=== PATIENT | male | born 1985 | race Caucasian/White ===

== ENCOUNTER 2021-05-05 10:02 | Emergency (ER) | payer MEDICAID, SELFPAY ==
--- NOTE | ~2021-05-05 | CT_ITS ---
EXAMINATION: CT ABDOMEN AND PELVIS WITH CONTRAST CLINICAL INFORMATION: Chills, nausea and vomiting and right lower quadrant pain for 3 days COMPARISON: Previous CT of the abdomen and pelvis July 2018 TECHNIQUE: Multidetector volumetric images were obtained from the superior aspect of the liver through the pubic symphysis following administration 85 mL of Omnipaque 350 intravenous contrast. Sagittal and coronal reformatted images were obtained on the technologist's workstation. Oral contrast: Yes This CT examination was performed using dose optimization techniques as appropriate, variously including the following: *Automated exposure control *Adjustment of mA and/or kV according to patient size (this includes techniques or standardized protocols for targeted exams where dose is matched to indication/reason for exam; i.e. extremities or head) *Use of iterative reconstruction technique DLP: 513 mGy-cm FINDINGS: LUNG BASES: The visualized lung bases are unremarkable. LIVER, GALLBLADDER, AND BILIARY TREE: The liver is normal in size, shape, and attenuation. No focal hepatic lesion or biliary ductal dilatation is present. The gallbladder is unremarkable with no evidence of radiopaque gallstones, gallbladder wall thickening, or obvious pericholecystic inflammatory changes. PANCREAS: There is question of small amount of fluid adjacent to the head of the pancreas versus wall edema and thickening of the stomach axial image 28 series 2. The pancreas is otherwise normal. The main pancreatic duct does not appear dilated. SPLEEN: Unremarkable. ADRENAL GLANDS: Unremarkable. KIDNEYS AND URETERS: The kidneys are normal in size, shape, and attenuation. No hydronephrosis, hydroureter, or calculi seen. No perinephric stranding. BLADDER: Unremarkable. GASTROINTESTINAL TRACT: There is an isolated dilated fluid-filled loop of small bowel in the left mid abdomen. This measures up to 3.5 cm in diameter. There is question of mild wall thickening of adjacent loops of proximal small bowel. The small and large bowel is otherwise unremarkable. There is stool throughout the colon. There is question of mild wall thickening of the distal stomach versus a small amount of fluid adjacent to the distal stomach and head of the pancreas for example axial image 27 series 2. No other evidence of ascites. No free air. The appendix is unremarkable. ABDOMINAL WALL: No significant hernia is appreciated. LYMPH NODES: Normal. VASCULAR: Unremarkable. PELVIC VISCERA: Unremarkable. OSSEOUS STRUCTURES: Unremarkable. CT/CT abdomen pelvis w con IMPRESSION: Normal-appearing appendix. Question wall thickening and edema versus a small amount of fluid adjacent to the distal stomach and pancreatic head. Dilated fluid-filled loop of proximal small bowel in the left mid abdomen and question adjacent mild proximal bowel wall thickening. Possible gastritis and enteritis and small bowel ileus should be considered. It is difficult to exclude a partial small bowel obstruction and imaging follow-up should be considered. Correlation with amylase to exclude possible pancreatitis is also recommended.
[2021-05-05 11:11] VITALS: BP 153/98; BP 161/92; PULSE 57; PULSE 61; RESP 18; TEMP 36.8; O2SAT 100; O2SAT 99; BMI 27.3
[2021-05-05 11:47] LABS: MANUAL DIFF FLAG NO
[2021-05-05] MEDS: 0.9 % Sodium Chloride 1,000 ML 999 ML IVCONT (11:47)
[2021-05-05 11:55] LABS: INTERNATIONAL NORM RATIO 1.1 (0.9-1.1); Prothrombin Time 12.8 SEC (9.9-13.0)
[2021-05-05 11:57] LABS: Basophils Absolute Auto 0.1 X10*3/uL (0.0-0.2); Basophils Percent Auto 0.3 % (0-2); Hematocrit 45.8 % (42.0-52.0); Hemoglobin 14.7 g/dl (14.0-18.0); Imm Gran Abs Auto 0.07 X10*3/uL (0.00-0.03); Imm Gran Pct Auto 0.5 % (0.0-0.4); Lymphocytes Absolute Auto 1.6 X10*3/uL (1.2-4.9); Lymphocytes Percent Auto 11.1 % (20-40); Mean Corpuscular HGB Conc 32.1 g/dl (31.0-36.0); Mean Corpuscular Hemoglobin 27.6 pg (27.0-33.0); Mean Corpuscular Volume 86.1 fL (80.0-98.0); Mean Platelet Volume 10.2 fL (9.4-12.4); Monocytes Absolute Auto 1.1 X10*3/uL (0.1-1.2); Monocytes Percent Auto 7.7 % (2-11); Neutrophils Absolute Auto 11.8 x10*3/uL (2.0-8.3); Neutrophils Percent Auto 80.4 % (45-73); Platelet Count 265 X10*3/uL (160-400); Red Blood Count 5.32 X10*6/uL (4.60-5.80); White Blood Count 14.7 X10*3/uL (4.8-10.8)
[2021-05-05 12:02] LABS: COVID-19 Test Negative (Negative); IDNOW Serial# 16C4AD1C
[2021-05-05 12:04] LABS: Alanine Aminotransferase 30 U/L (0-40); Albumin Level 4.6 g/dL (3.5-5.0); Alkaline Phosphatase 65 U/L (39-117); Anion Gap 14 (12-20); Aspartate Amino Transferase 19 U/L (5-37); Bilirubin Total 1.2 mg/dL (0.0-1.0); Blood Urea Nitrogen 12 mg/dL (9-16); Carbon Dioxide 26 mmol/L (22-29); Chloride 100 mmol/L (96-108); Creatinine Clr Calc Pharmacy 98.2; Estimated Glomerular Filt Rate > 60; Glucose Random 111 mg/dL (60-115); Magnesium 2.5 mg/dL (1.6-2.6); Potassium 4.2 mmol/L (3.3-5.1); Sodium 136 mmol/L (135-145); Total Protein 7.9 g/dL (6.5-8.0)
[2021-05-05] MEDS: iohexoL 350 MG/ML 100 ML INFUS..BTL 85 ML IV (12:16)
[2021-05-05] MEDS: ondansetron HCL 4 MG/2 ML VIAL IVPUSH (12:23)
[2021-05-05] MEDS: Ketorolac Tromethamine 30 MG/ML VIAL IVPUSH (13:17)
[2021-05-05 13:19] LABS: Amylase 61 U/L (28-100)
[2021-05-05 13:24] LABS: C Reactive Protein 0.03 mg/dL (< or = 0.50); Lipase 14 U/L (8-78)
[2021-05-05 13:24] LABS: Appearance Urine CLEAR; Color Urine YELLOW; Glucose Urine UA NEG (NEG); Leukocyte Esterase Urine NEG (NEG); Nitrite Urine NEG (NEG); Specific Gravity - Urine <= 1.005 (1.005-1.025); Urine Blood NEG (NEG); Urine Ketones NEG (NEG); Urine Protein NEG (NEG-TRACE)
[2021-05-05 13:29] VITALS: RESP 17
[2021-05-05 13:56] LABS: Erythrocyte Sedimentation Rate 3 MM/HR (0-15)
--- NOTE | 2021-05-05 13:58 | PC.NURSE ---
HPD ALERTED THAT PATIENT LEFT [facility] WITHOUT BEING DISCHARGED AND LEFT WITH A PERIPHERAL IV.
--- NOTE | 2021-05-05 14:00 | ED.ABDPAIN ---
HPI - Abdominal Pain General Chief Complaint: Abdominal Pain Stated Complaint: RUQ/RLQ PAIN PER EMS FROM [facility] Time Seen by Provider: 05/05/21 10:46 Source: patient Mode of arrival: ambulatory Limitations: no limitations History of Present Illness HPI narrative: 35-year-old male who is presenting from [facility] who recently started methadone 30 mg 3 days ago presenting to the ED with complaints of nausea/vomiting diffuse abdominal pain and constipation for the past 3 days. Reports that he had a small bowel movement yesterday although no symptomatic relief because the abdominal pain continues. He was given laxatives with good affect still with abdominal pain this is why he came here for further evaluation treatment. He denies any fevers, chills, dizziness, headache, neck pain/stiffness, trouble swallowing breathing, sore throat, loss of taste or smell, ear pain, chest pain or shortness of breath, dyspnea on exertion, orthopnea, black or bloody emesis, radiation of the abdominal pain, back pain, dysuria, hematuria, abnormal penile discharge, black or bloody stools, recent travel or sick contacts or any other symptoms complaints or concerns at this time. MD elicited complaint: abdominal pain Onset (ago): day(s) (3) Pain Consistency: constant Location: diffuse Severity: mild Quality: cramping Radiation: none Migration to: no migration Exacerbating factors: nothing Relieving factors: nothing Associated symptoms: nausea and vomiting Related Data Allergies Allergy/AdvReac Type Severity Reaction Status Date / Time No Known Allergies Allergy Verified 05/05/21 11:10 Review of Systems Review of Systems Constitutional : No Weight loss, No Fever, No Chills, No Night Sweats, No Fatigue, No Malaise ENT/Mouth : No Hearing loss, No Ear Pain, No Nasal Congestion, No Sinus Pain, No Hoarseness, No sore throat, No Rhinorrhea, No Swallowing Difficulty Eyes: No Eye Pain, No Swelling, No Redness, No Foreign Body, No Discharge, No Vision Changes Cardiovascular : No Chest Pain, No SOB, No Dyspnea on Exertion, No Orthopnea, No Edema, No Palpitations Respiratory : No Cough, No Sputum, No Wheezing, No Smoke Exposure, No Dyspnea Gastrointestinal : + Nausea, + Vomiting, No Diarrhea, + Constipation, + abdominal Pain, No Hematochezia, No Melena Genitourinary : no irregular bleeding, No Dysuria, No Urinary Frequency, No Hematuria, No Urinary Incontinence, No Urgency, No Flank Pain, No Urinary Flow Changes, No Hesitancy Musculoskeletal : No joint pain, No Myalgias, No Joint Swelling Skin : No Skin Lesions, No rash Neuro : No Weakness, No Numbness, No Paresthesias, No Loss of Consciousness, No Dizziness, No Headache Psych : No Anxiety/Panic, No Depression, No SI/HI/AH/VH, No Social Issues, Heme/Lymph: No Bruising, No Bleeding,No Lymphadenopathy Endocrine : No Polyuria, No Polydipsia, No Temperature Intolerance Yes all other systems are reviewed and are negative [facility] Past Medical History Attestation statement: The following information was validated with the patient. Social History Social History Advance Directives: No Advance Directives Information Provided: No Physical Exam ED Vital Signs: Vital Signs - 24 hr 05/05/21 11:11 05/05/21 13:29 Temperature 98.3 F Pulse Rate 57 Respiratory Rate 18 17 Blood Pressure 161/92 H Pulse Oximetry 100 BMI result Body Mass Index 27.3 vital signs have been reviewed as normal and appeared to be correct. Blood pressure 161/92. Heart rate normal. Respiration rate normal. Temperature normal. Oxygen saturation normal. Appearance: Alert. Oriented X3. No acute distress. Head: Normal external exam. Normocephalic. Atraumatic. Eyes: PERRLA. EOMI. Conjunctiva and sclera normal. Eyelids normal. ENT: Pharynx normal. Uvula midline. Moist mucous membranes. No lesions/ulcerations or masses noted on the tongue. Normal voice. No trismus noted. No drooling noted. No muffled voice noted. Neck: Normal inspection. Neck supple. FROM. No adenopathy. Thyroid Normal. No tracheal deviation noted. No crepitus is noted. No meningeal signs. No neck mass noted. No signs of trauma noted. CVS: Normal heart rate and rhythm. Heart sound normal. Pulses normal throughout. No murmurs/rales/gallops. Respiratory: No respiratory distress. Painless inspiration. Breath sounds normal. No wheezes/rales/rhonchi noted. Chest nontender. No crepitus is noted. No signs of trauma noted. No accessory muscle usage noted or decreased air movement noted. No signs of trauma. Abdomen: Soft and mild tenderness diffusely. Bowel sounds normal in all 4 quadrants. No distention noted. No organomegaly noted. No visible injury noted. Back: No CVA tenderness. Full range of motion noted. Nontender. No signs of trauma. Patient neuro intact bilaterally and distally on all 4 extremities. Patient's reflexes intact bilaterally and distally on all 4 extremities. No rashes/lesion/induration/fluctuance or signs of infection noted. Skin: Skin warm and dry. Normal skin color. Normal skin turgor. No rashes/lesions/lacerations noted. Extremities: Extremities exhibit normal range of motion and nontender. Neuro: Oriented X 3. No motor deficit. No sensory deficit. Reflexes normal. Normal steady gait. No focal neuro deficits noted. CN's II-XII intact bilaterally? Vascular: + radial pulses/+ 2 distal pedal pulses/+2 dorsalis pedis b/l. Normal cap refill. No cyanosis noted to upper extremity nails and lower extremity toes nails. Course Course Course Narrative: 2pm 35-year-old male who is presenting from [facility] who recently started methadone 30 mg 3 days ago presenting to the ED with complaints of nausea/vomiting diffuse abdominal pain and constipation for the past 3 days. Reports that he had a small bowel movement yesterday although no symptomatic relief because the abdominal pain continues. He was given laxatives with good affect still with abdominal pain this is why he came here for further evaluation treatment. He denies any fevers, chills, dizziness, headache, neck pain/stiffness, trouble swallowing breathing, sore throat, loss of taste or smell, ear pain, chest pain or shortness of breath, dyspnea on exertion, orthopnea, black or bloody emesis, radiation of the abdominal pain, back pain, dysuria, hematuria, abnormal penile discharge, black or bloody stools, recent travel or sick contacts or any other symptoms complaints or concerns at this time. Labs obtained [place] [id number]. Total bilirubin 1.2. Otherwise all other labs are within normal limits. UA within normal limits no evidence of UTI. Patient negative for COVID. CT scan abdomen pelvis revealed nonspecific changes although I consulted with Dr. Nance who took a look at the CT scan himself and reported that he does not believe this is a small-bowel obstruction. And the patient's lipase and amylase is within normal limits therefore not consistent with pancreatitis. Dr. Nance reported that he just has some constipation. When I went back into the room to discuss the findings with the patient he had eloped with the IV in his hand therefore [facility] department was called to remove the IV. MDM - Abdominal Pain Medical Records Attestation: I reviewed the patient's medical records. Lab Data Attestation: I reviewed the patient's lab results. Result diagrams: 05/05/21 11:41 05/05/21 11:41 Labs: Lab Results 05/05/21 05/05/21 05/05/21 Range/Units 11:41 11:41 11:41 WBC 14.7 H (4.8-10.8) X10*3/uL RBC 5.32 (4.60-5.80) X10*6/uL Hgb 14.7 (14.0-18.0) g/dl Hct 45.8 (42.0-52.0) % MCV 86.1 (80.0-98.0) fL MCH 27.6 (27.0-33.0) pg MCHC 32.1 (31.0-36.0) g/dl RDW 14.0 (11.0-16.0) % Plt Count 265 (160-400) X10*3/uL MPV 10.2 (9.4-12.4) fL Immature Gran % (Auto) 0.5 H (0.0-0.4) % Neut % (Auto) 80.4 H (45-73) % Lymph % (Auto) 11.1 L (20-40) % Mcdonald % (Auto) 7.7 (2-11) % Eos % (Auto) 0.0 (0-4) % Baso % (Auto) 0.3 (0-2) % Lymph # (Auto) 1.6 (1.2-4.9) X10*3/uL Mcdonald # (Auto) 1.1 (0.1-1.2) X10*3/uL Eos # (Auto) 0.0 (0.0-0.4) X10*3/uL Baso # (Auto) 0.1 (0.0-0.2) X10*3/uL Abs Immat Gran (auto) 0.07 H (0.00-0.03) X10*3/uL Absolute Neuts (auto) 11.8 H (2.0-8.3) x10*3/uL Absolute Nucleated RBC 0.000 (0.0-0.012) X10*3/uL Nucleated RBC % (auto) 0.0 (0.0-0.2) /100WBC ESR (0-15) MM/HR PT 12.8 (9.9-13.0) SEC INR 1.1 (0.9-1.1) Sodium 136 (135-145) mmol/L Potassium 4.2 (3.3-5.1) mmol/L Chloride 100 (96-108) mmol/L Carbon Dioxide 26 (22-29) mmol/L Anion Gap 14 (12-20) BUN 12 (9-16) mg/dL Creatinine 1.05 (0.5-1.4) mg/dL Estim Creat Clear Calc 98.2 Estimated GFR > 60 Random Glucose 111 (60-115) mg/dL Calcium 10.0 (8.4-10.2) mg/dL Magnesium 2.5 (1.6-2.6) mg/dL Total Bilirubin 1.2 H (0.0-1.0) mg/dL AST 19 (5-37) U/L ALT 30 (0-40) U/L Alkaline Phosphatase 65 (39-117) U/L C-Reactive Protein 0.03 (< or = 0.50) mg/dL Total Protein 7.9 (6.5-8.0) g/dL Albumin 4.6 (3.5-5.0) g/dL Amylase 61 (28-100) U/L Lipase 14 (8-78) U/L Urine Color Urine Appearance Urine pH (5.0-8.0) Ur Specific [place] (1.005-1.025) Urine Protein (NEG-TRACE) MG/DL Urine Glucose (UA) (NEG) MG/DL Urine Ketones (NEG) MG/DL Urine Blood (NEG) Urine Nitrite (NEG) Ur Leukocyte Esterase (NEG) COVID-19 (JAMEL) (Negative) COVID-19 Clin Com 05/05/21 05/05/21 05/05/21 Range/Units 11:43 11:43 13:02 WBC (4.8-10.8) X10*3/uL RBC (4.60-5.80) X10*6/uL Hgb (14.0-18.0) g/dl Hct (42.0-52.0) % MCV (80.0-98.0) fL MCH (27.0-33.0) pg MCHC (31.0-36.0) g/dl RDW (11.0-16.0) % Plt Count (160-400) X10*3/uL MPV (9.4-12.4) fL Immature Gran % (Auto) (0.0-0.4) % Neut % (Auto) (45-73) % Lymph % (Auto) (20-40) % Mcdonald % (Auto) (2-11) % Eos % (Auto) (0-4) % Baso % (Auto) (0-2) % Lymph # (Auto) (1.2-4.9) X10*3/uL Mcdonald # (Auto) (0.1-1.2) X10*3/uL Eos # (Auto) (0.0-0.4) X10*3/uL Baso # (Auto) (0.0-0.2) X10*3/uL Abs Immat Gran (auto) (0.00-0.03) X10*3/uL Absolute Neuts (auto) (2.0-8.3) x10*3/uL Absolute Nucleated RBC (0.0-0.012) X10*3/uL Nucleated RBC % (auto) (0.0-0.2) /100WBC ESR 3 (0-15) MM/HR PT (9.9-13.0) SEC INR (0.9-1.1) Sodium (135-145) mmol/L Potassium (3.3-5.1) mmol/L Chloride (96-108) mmol/L Carbon Dioxide (22-29) mmol/L Anion Gap (12-20) BUN (9-16) mg/dL Creatinine (0.5-1.4) mg/dL Estim Creat Clear Calc Estimated GFR Random Glucose (60-115) mg/dL Calcium (8.4-10.2) mg/dL Magnesium (1.6-2.6) mg/dL Total Bilirubin (0.0-1.0) mg/dL AST (5-37) U/L ALT (0-40) U/L Alkaline Phosphatase (39-117) U/L C-Reactive Protein (< or = 0.50) mg/dL Total Protein (6.5-8.0) g/dL Albumin (3.5-5.0) g/dL Amylase (28-100) U/L Lipase (8-78) U/L Urine Color YELLOW Urine Appearance CLEAR Urine pH 8.0 (5.0-8.0) Ur Specific [place] <= 1.005 (1.005-1.025) Urine Protein NEG (NEG-TRACE) MG/DL Urine Glucose (UA) NEG (NEG) MG/DL Urine Ketones NEG (NEG) MG/DL Urine Blood NEG (NEG) Urine Nitrite NEG (NEG) Ur Leukocyte Esterase NEG (NEG) COVID-19 (JAMEL) Negative (Negative) COVID-19 Clin Com See Note Imaging Data CT scan abdomen pelvis with IV contrast: Attestation: I personally reviewed and interpreted this imaging study as follows: Radiologist's impression: FINDINGS: LUNG BASES: The visualized lung bases are unremarkable.? LIVER, GALLBLADDER, AND BILIARY TREE: The liver is normal in size, shape, and attenuation. No focal hepatic lesion or biliary ductal dilatation is present. The gallbladder is unremarkable with no evidence of radiopaque gallstones, gallbladder wall thickening, or obvious pericholecystic inflammatory changes.? PANCREAS: There is question of small amount of fluid adjacent to the head of the pancreas versus wall edema and thickening of the stomach axial image 28 series 2. The pancreas is otherwise normal. The main pancreatic duct does not appear dilated. SPLEEN: Unremarkable.? ADRENAL GLANDS: Unremarkable.? KIDNEYS AND URETERS: The kidneys are normal in size, shape, and attenuation. No hydronephrosis, hydroureter, or calculi seen. No perinephric stranding. ? BLADDER: Unremarkable.? GASTROINTESTINAL TRACT: There is an isolated dilated fluid-filled loop of small bowel in the left mid abdomen. This measures up to 3.5 cm in diameter. There is question of mild wall thickening of adjacent loops of proximal small bowel. The small and large bowel is otherwise unremarkable. There is stool throughout the colon. There is question of mild wall thickening of the distal stomach versus a small amount of fluid adjacent to the distal stomach and head of the pancreas for example axial image 27 series 2. No other evidence of ascites. No free air. The appendix is unremarkable.? ABDOMINAL WALL: No significant hernia is appreciated.? LYMPH NODES: Normal. VASCULAR: Unremarkable. PELVIC VISCERA: Unremarkable.? OSSEOUS STRUCTURES: Unremarkable.? CT/CT abdomen pelvis w con IMPRESSION: Normal-appearing appendix. Question wall thickening and edema versus a small amount of fluid adjacent to the distal stomach and pancreatic head.? Dilated fluid-filled loop of proximal small bowel in the left mid abdomen and question adjacent mild proximal bowel wall thickening. Possible gastritis and enteritis and small bowel ileus should be considered. It is difficult to exclude a partial small bowel obstruction and imaging follow-up should be considered. Correlation with amylase to exclude possible pancreatitis is also recommended. Discharge Plan Discharge Clinical Impression: Nausea & vomiting, Abdominal pain, Constipation Patient Disposition: Elopement
== END 2021-05-05 15:38 | disposition left against medical advice (07) ==
PROVIDERS: Physician Assistant Medical; Emergency Provider Emergency Medicine
DX: K59.00 Constipation, unspecified (principal); R10.11 Right upper quadrant pain; R11.2 Nausea with vomiting, unspecified; R10.31 Right lower quadrant pain; Z20.822 Contact with and (suspected) exposure to COVID-19; Z79.899 Other long term (current) drug therapy
CPT/HCPCS: 36415; 74177; 80053; 81003; 82150; 83690; 83735; 85025; 85610; 85652; 86140; 87635; 96361; 96374; 96375; 99284; J1885; J2405; Q9967

== ENCOUNTER 2022-09-23 07:30 | Emergency (ER) | payer MEDICAID, SELFPAY ==
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
--- NOTE | ~2022-09-23 | XR_ITS ---
EXAMINATION: XR FOOT, LEFT XR ANKLE, LEFT CLINICAL INFORMATION: Left foot and ankle pain. COMPARISON: 05/24/2018 TECHNIQUE: AP and oblique views of the left ankle were obtained. AP, lateral and oblique views of the left foot were obtained. FINDINGS: Alignment is anatomic. There is mild joint space narrowing involving the first MTP joint. Ankle mortise is maintained. The talar dome is intact. Posterior and plantar calcaneal spurs. Small ossific fragments are seen involving the base of the fifth toe middle phalanx. Of note the distal and middle phalanges of the fifth toe are fused. This could represent avulsion fractures. There is extension to the PIP joint. XR/XR foot LT min 3V IMPRESSION: Possible avulsion fractures involving the fifth toe middle phalanx with intra-articular extension. Advise clinical correlation.
[2022-09-23 07:37] VITALS: BP 151/89; BP 154/88; PULSE 59; PULSE 60; RESP 16; TEMP 36.6; O2SAT 100; O2SAT 98; BMI 29.2
[2022-09-23 07:42] VITALS: RESP 16
[2022-09-23] MEDS: 0.9 % Sodium Chloride 1,000 ML 999 ML IVCONT (07:53)
[2022-09-23] MEDS: Ketorolac Tromethamine 30 MG/ML VIAL IVPUSH (07:53)
[2022-09-23 07:54] LABS: MANUAL DIFF FLAG NO
[2022-09-23 07:55] LABS: Basophils Absolute Auto 0.1 X10*3/uL (0.0-0.2); Basophils Percent Auto 0.6 % (0-2); Eosinophils Absolute Auto 0.2 X10*3/uL (0.0-0.4); Eosinophils Percent Auto 1.9 % (0-4); Hematocrit 40.6 % (42.0-52.0); Hemoglobin 12.8 g/dl (14.0-18.0); Imm Gran Abs Auto 0.04 X10*3/uL (0.00-0.03); Imm Gran Pct Auto 0.4 % (0.0-0.4); Lymphocytes Percent Auto 18.6 % (20-40); Mean Corpuscular HGB Conc 31.5 g/dl (31.0-36.0); Mean Corpuscular Hemoglobin 27.5 pg (27.0-33.0); Mean Corpuscular Volume 87.1 fL (80.0-98.0); Mean Platelet Volume 10.5 fL (9.4-12.4); Monocytes Absolute Auto 0.8 X10*3/uL (0.1-1.2); Monocytes Percent Auto 7.7 % (2-11); Neutrophils Absolute Auto 7.5 x10*3/uL (2.0-8.3); Neutrophils Percent Auto 70.8 % (45-73); Platelet Count 244 X10*3/uL (160-400); Red Blood Count 4.66 X10*6/uL (4.60-5.80); Red Cell Distribution Width 13.5 % (11.0-16.0); White Blood Count 10.6 X10*3/uL (4.8-10.8)
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
[2022-09-23 08:13] LABS: Alanine Aminotransferase 15 U/L (0-40); Albumin Level 3.9 g/dL (3.5-5.0); Alkaline Phosphatase 68 U/L (39-117); Anion Gap 11 (12-20); Aspartate Amino Transferase 14 U/L (5-37); Bilirubin Total 0.4 mg/dL (0.0-1.0); Blood Urea Nitrogen 13 mg/dL (9-16); Calcium 9.7 mg/dL (8.4-10.2); Carbon Dioxide 25 mmol/L (22-29); Chloride 108 mmol/L (96-108); Creatinine Clr Calc Pharmacy 113.1; Estimated Glomerular Filt Rate > 60; Ethanol < 10 mg/dL; Glucose Random 102 mg/dL (60-115); Lipase 45 U/L (8-78); Potassium 4.2 mmol/L (3.3-5.1); Sodium 140 mmol/L (135-145)
[2022-09-23] MEDS: Acetaminophen 325 MG TABLET 975 MG PO (09:01)
[2022-09-23 09:19] LABS: Amphetamine Screen Urine Not Detected (Not Detect); Barbiturates, Urine Not Detected (Not Detect); Benzodiazepines Screen Urine Not Detected (Not Detect); Cannabinoid Screen Urine POSITIVE (Not Detect); Cocaine Screen Urine POSITIVE (Not Detect); Fentanyl, urine POSITIVE (Not Detect); Opiate Screen Urine POSITIVE (Not Detect); Phencyclidine Screen Urine Not Detected (Not Detect)
== END 2022-09-23 09:24 | disposition home or self-care (01) ==
PROVIDERS: Emergency Provider Emergency Medicine
DX: M79.10 Myalgia, unspecified site (principal); S92.902A Unspecified fracture of left foot, initial encounter for closed fracture; V03.00XA Pedestrian on foot injured in collision with car, pick-up truck or van in nontraffic accident, initial encounter; F11.10 Opioid abuse, uncomplicated; Y93.01 Activity, walking, marching and hiking; Y92.414 Local residential or business street as the place of occurrence of the external cause; Y99.9 Unspecified external cause status
CPT/HCPCS: 36415; 73610; 73630; 80053; 80307; 83690; 85025; 96361; 96374; 99284; J1885

== ENCOUNTER 2023-10-04 14:48 | Outpatient (REF) | payer MEDICAID, SELFPAY ==
[2023-10-04 17:18] LABS: Alanine Aminotransferase 14 U/L (0-40); Albumin Level 4.3 g/dL (3.5-5.0); Alkaline Phosphatase 65 U/L (39-117); Aspartate Amino Transferase 15 U/L (5-37); Bilirubin Direct 0.3 mg/dL (0.0-0.5); Bilirubin Total 0.7 mg/dL (0.0-1.0); Total Protein 7.4 g/dL (6.5-8.0)
[2023-10-05 04:34] LABS: Hepatitis A Antibody IgG REACTIVE (Nonreactive); ~Hepatitis A Antibody IgG 2.15 S/CO (0.00-0.99)
[2023-10-05 04:45] LABS: HBS Num1 > 1000.00 mIU/mL (0-7.99); HBc Num1 0.11 S/CO (0.00-0.79); HBsAGNum1 0.28 S/CO (0.00-0.99); HIV Num 1 1.64 S/CO (0.00-0.99); Hepatitis B Core Antibody Nonreactive (Nonreactive); Hepatitis B Surface Antigen Negative (Negative); ~HepC Num1 0.17 S/CO (0.00-0.79); ~Hepatitis B Surface Antibody REACTIVE (Nonreactive); ~Hepatitis C Antibody Nonreactive (Nonreactive)
[2023-10-05 05:41] LABS: HIV AB/AG Nonreactive (Nonreactive); HIV Num 2 0.05 S/CO; HIV Num 3 0.05 S/CO
[2023-10-07 07:23] LABS: TS Negative Control Passed; TS Panel A 0; TS Panel B 0; TS Positive Control Passed; TSpotTB Negative (Negative)
[2023-10-07 09:59] LABS: RPR Rapid Plasma Reagin NON-REACTIVE (NON-REACTIVE)
== END 2023-10-04 14:49 | disposition home or self-care (01) ==
LOC: HO.HHCL 14:48
PROVIDERS: Visit Provider Emergency Medicine
DX: F11.20 Opioid dependence, uncomplicated (principal)
CPT/HCPCS: 36415; 80076; 86481; 86592; 86704; 86706; 86708; 86803; 87340; 87389

== ENCOUNTER 2025-01-23 16:35 | Outpatient (REF) | payer MEDICAID, SELFPAY ==
--- OUTSIDE RECORDS SUMMARY | 2025-01-23 11:45 | XMS_ITS | Encounter Summary ---
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 Name Role Phone Unavailable Primary Care Provider Unavailabl e Reason for Visit * Reason Comments OBAT RV OBAT follow up Encounter Details Date Type Department Care Team (Latest Contact Info) Description 01/23/2025 11:45 AM EST Clinical Support [facility] [address] [place] [address] Angelina Flores, RN [address] [place] [address] Opioid dependence, uncomplicated (CMS/HCC) (HCC) (Primary Dx) Social History Tobacco Use Types Packs/Day Years Used Date Smoking Tobacco: Every Day Cigarettes Passive Smoke Exposure: Never Smokeless Tobacco: Never Alcohol Use Standard Drinks/Week Comments Not Currently 0 (1 standard drink = 0.6 oz pur e alcohol) Depression Answer Date Recorded Patient Health Questionnaire-9 Score 0 08/21/2024 Patient Health Questionnaire-9 Score 0 08/21/2024 Last PHQ-9: Questionnaire Data Not on file 0 08/21/2024 Housing Stability Answer Date Recorded What is your housing situation today? I have luis colby 08/21/[address] you li ve. Do you have problems with any of the following? None of the above 08/21/2024 Food Insecurity Answer Date Recorded Within the past 12 months, y ou worried that your food would run out before you got money to buy more: Never True 08/21/2024 Within the past 12 months,th e food you bought just didn't last and you didn't have enough money to get more: Never True Transportation Answer Date Recorded In the past 12 months, has l ack of transportation kept you from medical appts, meetings, work or from getting things needed for daily living? No 08/21/2024 Utilities Answer Date Recorded In the past 12 months, has t he electric, gas, oil or water company threatened to shut off services in your home? No 08/21/2024 Depression Answer Date Recorded Patient Health Questionnaire-2 Score 0 08/21/2024 Internet Access Answer Date Recorded Internet Access Q1 I am not sure 08/21/2024 Internet Access Q2 Not on file 08/21/2024 Sex and Gender Information Value Date Recorded Sex Assigned at Male 01/04/2022 10:23 AM EDT Legal Sex Male 10:23 AM EDT Gender Identity Male 01/04/2022 10:23 AM EDT Sexual Orientation Straight 01/04/2022 10 :23 AM EDT documented as of this encounter Progress Notes * Angelina Flores RN - 01/23/2025 11:45 AM EST Akbar Bhardwaj is a 39 y.o. male who presents for OBAT RV. Pt on Suboxone dose of 24/6 mg daily, on a 1 week schedule. On Sublocade previously but did not like injections. Patient has been in the program for 6 months. Most recent re-entry date: 07/24/24. [facility] OBAT: Feb 2022-Feb 2023, July 2023-Dec 2023 Patient actively enrolled in behavioral health services. AURELIA MAK reviewed by provider. Last PCP appt: Needs PCP appt Smoking status: vaping nicotine LFTS: last done 10/04/23 HIV: non-reactive 10/04/23 Hep C: non-reactive 10/04/23 Hep B: immune 10/04/23 Hep A: immune 10/04/23 Last visit 01/17/25 (missed appointment on 01/16/25) No Utox collected today Akbar seen today for follow up for opioid use disorder. He is not feeling well, with sore throat, neck pain, and ear pain. Advised him to go to [facility] today for evaluation. Reports using the same (marijuana, fentanyl, cocaine) and has a lot of Narcan. He is considering going to a detox next week but did not feel ready to meet with a head boys tennis coach about this today. Will program labs when he is feeling better. Today: Utox: mouthswab collected today Akbar here for follow up for opioid use disorder. Came during meeting time so unable to see recoverycoach or therapist. States has used a little heroin this week, also some cocaine and a benzo x 1. Has Narcan, fentanyl test strips, Colace. Agrees to go to lab today for program labs. Still thinking about detox, but not today. Plan: Suboxone dosing of 24/6 mg daily and management of side effects reviewed. Recovery support, harm reduction (including Narcan), and behavioral health attendance reviewed. Appointment for 1 week given.Patient expressed understanding and agreement with continuing plan of care. This information has been disclosed to you from records protected by federal confidentiality rules (42 CFR Part 2). The federal rules prohibit you from making any further disclosure of information inthis record that identifies a patient as having or having had a substance use disorder either directly, by reference to publicly available information, or through verification of such identification by another person unless further disclosure is expressly permitted by the written consent of the individual whose information is being disclosed or as otherwise permitted by (see2.3.1). The federal rules restrict any use of the information to investigate or prosecute with regard to a crime any patient with a substance use disorder, except as provided at 2.12??(5) and 2.65. * Iris Varner MD - 01/23/2025 11:15 AM EST Subjective Patient ID: Akbar Bhardwaj is a 39 y.o. male who presents for OBAT RV. HPI Pt on Suboxone dose of 24/6 mg daily, on a 1 week schedule. On Sublocade previously but did not like injections. Patient has been in the program for 6 months. Most recent re-entry date: 07/24/24. [facility] OBAT: Feb 2022-Feb 2023, July 2023-Dec 2023 Patient actively enrolled in behavioral health services. AURELIA MAK reviewed by provider. Last PCP appt: Needs PCP appt Smoking status: vaping nicotine LFTS: last done 10/04/23 HIV: non-reactive 10/04/23 Hep C: non-reactive 10/04/23 Hep B: immune 10/04/23 Hep A: immune 10/04/23 Last visit 01/17/25 (missed appointment on 01/16/25) No Utox collected today Akbar seen today for follow up for opioid use disorder. He is not feeling well, with sore throat, neck pain, and ear pain. Advised him to go to [facility] for evaluation. Reports using the same (marijuana, fentanyl, cocaine) and has a lot of Narcan. He is considering going to a detox next week but did not feel ready to meet with a head boys tennis coach about this today. [facility] program labs when he is feeling better. Today: Utox not requested Plan: Suboxone dosing of 24/6 mg daily and management of side effects reviewed. Recovery support, harm reduction (including Narcan), and behavioral health attendance reviewed. Appointment for 1 week given.Patient expressed understanding and agreement with continuing plan of care. This information has been disclosed to you from records protected by federal confidentiality rules (42 CFR Part 2). The federal rules prohibit you from making any further disclosure of information inthis record that identifies a patient as having or having had a substance use disorder either directly, by reference to publicly available information, or through verification of such identification by another person unless further disclosure is expressly permitted by the written consent of the individual whose information is being disclosed or as otherwise permitted by (see2.3.1). The federal rules restrict any use of the information to investigate or prosecute with regard to a crime any patient with a substance use disorder, except as provided at 2.12??(5) and 2.65. Review of Systems Objective Physical Exam No visits with results within 1 Day(s) from this visit. Latest known visit with results is: Office Visit on 01/09/2025 Component Date Value Ref Range Status THC 01/09/2025 Positive (A) Negative Final Cocaine Screen, Urine 01/09/2025 Positive (A) Negative Final Opiate Screen, Urine 01/09/2025 Positive (A) Negative Final Methamphetamine Screen Urine 01/09/2025 Negative Negative Final Amphetamine Screen, Urine 01/09/2025 Negative Negative Final Benzodiazepines Screen, Urine 01/09/2025 Negative Negative Final Barbiturate Screen, Urine 01/09/2025 Negative Negative Final Methadone Screen, Urine 01/09/2025 Negative Negative Final Buprenophine Screen, Urine 01/09/2025 Positive (A) Negative Final TCA, Urine 01/09/2025 Negative Negative Final MDMA Urine 01/09/2025 Negative Negative ng/mL Final Oxycodone Screen, Urine 01/09/2025 Negative Negative Final Phencyclidine (PCP), Urine 01/09/2025 Negative Negative Final Fentanyl, Urine 01/09/2025 Positive (A) Negative Final Assessment/Plan documented in this encounter Miscellaneous Notes * Assessment & Plan Note - Iris Varner MD - 01/22/2025 11:21 PM ESTAssociated Problem(s): Opioid dependence, uncomplicated (CMS/HCC) (HCC) - stage of change: contemplation / preparation - Utox review: pos bup, thc, tiffany, opi, fen - Overdose risk: high risk, mixed use. Protective factor: buprenorphine / naloxone (Suboxone). - Continue current recovery support - Continue current recovery effort - Reviewed harm reduction and overdose prevention documented in this encounter Plan of Treatment Upcoming Encounters Date Type Department Care Team (Late st Contact Info) Description 01/30/2025 11:00 AM EST Clinical Support [facility] [address] [place] [id number] Elvira Carmen, MAINOR Scheduled Orders Name Type Priority Associated Diagnoses Orde r Schedule Drug Toxicology Monitoring Base Panel, w/Confirmation, Oral Fluid Lab Routine Opioid dependence, uncomplicated (CMS/HCC) (HCC) Ordered: 01/23/2025 documented as of this encounter Goals Goal Patient Goal Type Associated Problems Recent Progress Patient-Stated? Author Increase coping skills to promote long-term recovery and improve ability to perform daily activities General Not on track( 025 2:24 PM EST) No Shanel Luke, MAINOR Keep your medical appointments Lifestyle No Angelina Flores RN documented as of this encounter Visit Diagnoses Diagnosis Opioid dependence, uncomplicated (CMS/HCC) (HCC)- Primary documented in this encounter Additional Health Concerns Assessment Noted Time PHQ-9 Depression Total Score: 0 08/22/19 25 1:23 PM EDT documented as of this encounter
--- OUTSIDE RECORDS SUMMARY | 2025-01-24 04:52 | XMS_ITS | Encounter Summary ---
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 Role Phone Unavailable Primary Care Provider Unavailabl e Encounter Details Date Type Department Care Team (Late st Contact Info) Description 10/04/2023 Orders Only [facility] [address] [place] [address] Elvira Carmen, RN Social History Tobacco Use Types Packs/Day Years Used Date Smoking Tobacco: Every Day Cigarettes Passive Smoke Exposure: Never Smokeless Tobacco: Never Alcohol Use Standard Drinks/Week Comments Not Currently 0 (1 standard drink = 0.6 oz pur e alcohol) Depression Answer Date Recorded Patient Health Questionnaire-9 Score 15 08/10/2023 Patient Health Questionnaire-9 Score 15 08/10/2023 Last PHQ-9: Questionnaire Data Not on file 0 08/10/2023 Housing Stability Answer Date Recorded What is your housing situation today? I have luis colby 07/26/[address] you li ve. Do you have problems with any of the following? None of the above 07/26/2023 Food Insecurity Answer Date Recorded Within the past 12 months, y ou worried that your food would run out before you got money to buy more: Never True 07/26/2023 Within the past 12 months,th e food you bought just didn't last and you didn't have enough money to get more: Never True Transportation Answer Date Recorded In the past 12 months, has l ack of transportation kept you from medical appts, meetings, work or from getting things needed for daily living? No 07/26/2023 Utilities Answer Date Recorded In the past 12 months, has t he electric, gas, oil or water company threatened to shut off services in your home? No 07/26/2023 Depression Answer Date Recorded Patient Health Questionnaire-2 Score 4 08/10/2023 Sex and Gender Information Value Date Recorded Sex Assigned at Male 01/04/2022 10:23 AM EDT Legal Sex Male 10:23 AM EDT Gender Identity Male 01/04/2022 10:23 AM EDT Sexual Orientation Straight 01/04/2022 10 :23 AM EDT documented as of this encounter Plan of Treatment Upcoming Encounters Date Type Department Care Team (Late st Contact Info) Description 01/30/2025 11:00 AM EST Clinical Support [facility] [address] [place] [address] Elvira Carmen RN documented as of this encounter Visit Diagnoses Not on filedocumented in this encounter Additional Health Concerns Assessment Noted Time PHQ-9 Depression Total Score: 15 024 3:35 PM EDT documented as of this encounter
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
--- OUTSIDE RECORDS SUMMARY | 2025-01-24 04:52 | XMS_ITS | Encounter Summary ---
Author Organization [employer] Address [address] [place] [address] [address] [place] [address] Care Team Providers Care Food Assembler Name Role Phone Unavailable Primary Care Provider Unavailabl e Reason for Visit * Reason Comments Med Refill Encounter Details Date Type Department Care Team ([facility] Contact Info) Description 08/20/2022 Refill [facility] [address] [place] [phone] Lorenzo Alvarez MD [address], [place] [phone] Uncomplicated opioid dependence (CMS/HCC) Social History Tobacco Use Types Packs/Day Years Used Date Smoking Tobacco: Every Day Cigarettes Passive Smoke Exposure: Never Smokeless Tobacco: Never Alcohol Use Standard Drinks/Week Comments Not Currently 0 (1 standard drink = 0.6 oz pur e alcohol) Sex and Gender Information Value Date Recorded Sex Assigned at Male 01/04/2022 10:23 AM EDT Legal Sex Male 10:23 AM EDT Gender Identity Male 01/04/2022 10:23 AM EDT Sexual Orientation Straight 01/04/2022 10 :23 AM EDT COVID-19 Exposure Response Date Recorded In the last 10 days, have yo u been in contact with someone who was confirmed or suspected to have Coronavirus/COVID-19? No / Unsure 08/20/2022 10:09 AM EDT documented as of this encounter Plan of Treatment Upcoming Encounters Date Type Department Care Team ([facility] Contact Info) Description 01/30/2025 11:00 AM EST Clinical Support [facility] [address] [place] [phone] Elvira Carmen RN documented as of this encounter Visit Diagnoses Diagnosis Uncomplicated opioid dependence (CMS/HCC) (HCC) documented in this encounter Additional Health Concerns Assessment Noted Time PHQ-9 Depression Total Score: 1 06/05/19 23 10:25 AM EDT documented as of this encounter
--- OUTSIDE RECORDS SUMMARY | 2025-01-24 04:52 | XMS_ITS | Encounter Summary ---
Author Organization [employer] Address [address] [place] [address] [address] [place] [address] Care Team Providers Care Corporate Director Of Human Resources Name Role Phone Unavailable Primary Care Provider Unavailabl e Encounter Details Date Type Department Care Team (Latest Contact Info) Description 01/23/2025 Travel Social History Tobacco Use Types Packs/Day Years [...] Description 01/30/2025 11:00 AM EST Clinical Support [facility] [address] [place] [id number] Elvira Carmen RN documented as of this encounter Goals Goal Patient Goal Type Associated Problems Recent Progress Patient-Stated? Author Increase coping skills to promote long-term recovery and improve ability to perform daily activities General Not on track( 025 2:24 PM EST) No Shanel Luke, MAINOR Keep your medical appointments Lifestyle No Angelina Flores, MAINOR documented as of this encounter Visit Diagnoses Not on filedocumented in this encounter Additional Health Concerns Assessment Noted Time PHQ-9 Depression Total Score: 0 08/22/19 25 1:23 PM EDT documented as of this encounter
--- OUTSIDE RECORDS SUMMARY | 2025-01-24 04:53 | XMS_ITS | Encounter Summary ---
Author Organization [employer] Address [address] [place] [address] [address] [place] [address] Care Team Providers Care Quarrying Manager Name Role Phone Unavailable Primary Care Provider Unavailabl e Encounter Details Date Type Department Care Team (Late Contact Info) Description 10/01/2022 [facility] Information Management [address] [place], [place] [phone] Maren Bertrand FNP [address] [place], [place] [phone] Social History Tobacco Use Types Packs/Day Years [...] suspected to have Coronavirus/COVID-19? No / Unsure 09/10/2022 8:33 AM EDT documented as of this encounter Plan of Treatment Upcoming Encounters Date Type Department Care Team (Late Contact Info) Description 01/30/2025 11:00 AM EST Clinical Support [facility] [address] [place], [place] [phone] Elvira Carmen RN documented as of this encounter Visit Diagnoses Not on filedocumented in this encounter Additional Health Concerns Assessment Noted Time PHQ-9 Depression Total Score: 1 06/05/19 23 10:25 AM EDT documented as of this encounter
--- OUTSIDE RECORDS SUMMARY | 2025-01-24 04:53 | XMS_ITS | Encounter Summary ---
Author Organization [employer] Address [address] [place] [address] [address] [place] [address] Care Team Providers Care Weight Reducing Technician Name Role Phone Unavailable Primary Care Provider Unavailabl e Reason for Visit * Reason Onset Date Comments New Patient Appt 09/08/2022 Encounter Details Date Type Department Care Team (Late st Contact Info) Description 09/08/2022 Telephone [facility] [address] [place] [address] Maren Bertrand FNP [address] [place] [address] New Patient Appt Social History Tobacco Use Types Packs/Day Years [...] AM EDT documented as of this encounter Miscellaneous Notes * Telephone Encounter - Rogelio Mabry - 09/08/2022 4:02 PM EDT PAR Rogelio Gtz called pt to offer AUTOMATION SPECIALIST appt. Pt demographics and insurance information were verified. Pt reports no medical conditions. Pt is taking medication Suboxone. Pt given AUTOMATION SPECIALIST appt with PCP Rail Grinder Maren Bertrand on 10/15/2022 @ 2:00 pm. Pt will be sent appt reminder card and medical release formand agrees to complete and to return to medical records prior to AUTOMATION SPECIALIST appt. documented in this encounter Plan of Treatment Upcoming Encounters Date Type Department Care Team (Late st Contact Info) Description 01/30/2025 11:00 AM EST Clinical Support [facility] [address] [place] [address] Elvira Carmen RN documented as of this encounter Visit Diagnoses Not on filedocumented in this encounter Additional Health Concerns Assessment Noted Time PHQ-9 Depression Total Score: 1 06/05/19 23 10:25 AM EDT documented as of this encounter
== END 2025-01-23 16:36 | disposition home or self-care (01) ==
LOC: HO.HHCLNP 16:35
PROVIDERS: Visit Provider Family Medicine
DX: F11.20 Opioid dependence, uncomplicated (principal)
CPT/HCPCS: 36415; 80307